=== PATIENT | female | born 1950 | race Caucasian/White ===

== ENCOUNTER 2019-11-18 08:18 | Day surgery (SDC) | payer OTHER ==
[~2019-11-18] VITALS: Ht 162.6 cm; Wt 121.5 kg
[~2019-11-18 08:18] MED LIST: AMITRIPTYLINE H50 M2 PO; ARICEPT10 M1 PO; ASA81BEC PO; BUSPIRONE HCL10 MG PO; CELEXA 20 MG TA20 MG PO; CLONIDINE HCL0.2 M2 PO; COSOPT OCUMETER10 ML OPHTHALMIC; CYMBALTA60 MG PO; FUROSEMIDE 20 M20 MG PO; GLIPIZIDE 10 MG10 MG PO; HUMALOG100 UNIT/1 SUBQ; LEVEMIR FL100 UNIT/2 SUBQ; LIPITOR 20 MG T20 M1 PO; MELATONIN3 M1 PO; METFORMIN HCL500 M3 PO; NAMENDA XR28 MG PO; NORVASC10 MG PO; RISPERIDONE 00.25 M1 PO; TRAZODONE 150150 M1 PO; ZESTRIL40 MG PO
[2019-11-18 09:44] VITALS: BP 136/63
--- NOTE | 2019-11-22 06:13 | O ---
[facility] [place] [address] OPERATIVE REPORT Name: BRENDA CAO Room #: DEP [facility]#: [id number] Admission: 11/18/19 Attend Phys: Jadiel Plata MD Discharge: 11/18/19 Date of : 52 Report #: [id number] THIS REPORT FOR: cc: Ramesh Rodriguez MD, Shyam MD White,Jadiel Sinclair MD ~ CC: LAURA Plata DATE OF SERVICE: 11/18/2019 [employer] REPRESENTATIVE: None. PREOPERATIVE DIAGNOSIS: Unilateral right lower lid entropion. POSTOPERATIVE DIAGNOSIS: Unilateral right lower lid entropion. OPERATION PERFORMED: Unilateral right lower lid entropion repair. ANESTHESIA: Local with IV sedation. COMPLICATIONS: None. INDICATIONS FOR PROCEDURE: This patient has unilateral lower lid entropion with chronic irritation and discharge. The current procedure is being undertaken in order to improve the patient's level of comfort and visual function. Informed consent was obtained to include but not limited to the loss of vision, bleeding, infection, scarring, failure to improve the problem and need for further surgery. DESCRIPTION OF OPERATION: The patient was taken to the operating room, where 2% Xylocaine with epinephrine mixed with equal parts of 0.75% Marcaine with Wydase was administered transcutaneously and transconjunctivally to the lower lid and lateral canthal area. The patient was then prepped and draped in the usual sterile fashion. A Ahmet clamp was used to clamp the lateral canthus, following which a sharp canthotomy and cantholysis were performed. Hemostasis was achieved with a monopolar cautery, as it was throughout the case. A tarsal strip was prepared laterally, removing the lash-bearing portion of the redundant lid margin and the redundant tarsal plate. A transconjunctival dissection was then undertaken just inferior to the lower border of the tarsal plate. The lower lid retractors were disinserted from the inferior border of the tarsal plate. The lower lid retractors were then advanced and reattached to the anterior surface of the tarsal plate with mattress 5-0 chromic sutures passed [address] [id number] OPERATIVE REPORT Name: BRENDA CAO Room #: [facility]#: [id number] Admission: 11/18/19 Attend Phys: Jadiel Plata MD Discharge: 11/18/19 Date of : 52 Report #: [id number] transconjunctivally and secured in the infraciliary margin. The tarsal strip was then secured laterally with 2 interrupted 5-0 Prolene sutures. The subcutaneous structures and the skin were then closed with multiple interrupted 6-0 plain gut sutures so the lateral canthal angle was sharply reformed. The wound was then cleaned and dressed with ophthalmic antibiotic ointment. The patient was then transported to the recovery area having tolerated the procedure well with no anesthetic or operative complications being noted. <ELECTRONICALLY SIGNED> By: Jadiel Plata MD 11/22/19 [id number] [id number] Jadiel Plata MD /nt
== END 2019-11-18 11:00 | disposition home or self-care (01) ==
LOC: OR 08:18 → TBA 08:24 → OR 11:00
DX: H02.002 Unspecified entropion of right lower eyelid (principal); I10 Essential (primary) hypertension; E11.9 Type 2 diabetes mellitus without complications; E78.5 Hyperlipidemia, unspecified; F02.80 Dementia in other diseases classified elsewhere, unspecified severity, without behavioral disturbance, psychotic disturbance, mood disturbance, and anxiety; F32.9 Major depressive disorder, single episode, unspecified; F41.9 Anxiety disorder, unspecified; G30.9 Alzheimer's disease, unspecified; Z98.890 Other specified postprocedural states; Z79.899 Other long term (current) drug therapy; Z79.82 Long term (current) use of aspirin
CPT/HCPCS: 50010; 50101; 50386; 50398; 51636; 56527; 56531; 70005